=== PATIENT | female | born 1950 ===

== ENCOUNTER 2018-01-02 10:08 | Day surgery (SDC) | payer MEDICARE ==
[2017-10-01 12:43] VITALS: BMI 26.4
[2018-01-02] MEDS ORDERED: Lactated Ringer's 500 ML IV ONE (10:26)
[2018-01-02] MEDS ORDERED: Propofol 10 mg/ml Inj (20 ML) ONE (12:07)
[2018-01-02 12:28] VITALS: TEMP 97
[2018-01-02 12:39] VITALS: BP 113/69; PULSE 51; RESP 13; O2SAT 99
== END 2018-01-02 12:51 | disposition home or self-care (01) ==
LOC: H.ENDO 10:08
PROVIDERS: ATTEND Internal Medicine Gastroenterology
DX: Z12.11 Encounter for screening for malignant neoplasm of colon (principal); J45.909 Unspecified asthma, uncomplicated; E78.5 Hyperlipidemia, unspecified; I10 Essential (primary) hypertension; F41.8 Other specified anxiety disorders; K57.30 Diverticulosis of large intestine without perforation or abscess without bleeding
CPT/HCPCS: G0121; J2001; J2704; J7120

== ENCOUNTER 2018-04-18 06:15 | Day surgery (SDC) | payer MEDICARE, SELFPAY ==
[2018-04-18] MEDS ORDERED: Lactated Ringer's 1,000 ML IV ONE ×2 (08:30→13:10)
[2018-04-18 09:22] VITALS: BMI 24.3
[2018-04-18] MEDS ORDERED: Bupivacaine HCl 0.25% PF (30 ml) Inj ONE (10:09)
[2018-04-18] MEDS ORDERED: EPINEPHrine 1 mg/ml (1:1000) Inj ONE ×2 (10:09)
[2018-04-18] MEDS ORDERED: ceFAZolin IV 1 gm in Dextrose 2 GM/100 ML BAG IVPB ONE (10:10)
[2018-04-18] MEDS ORDERED: Bacitracin Ointment 30 GM TUBE ONE (10:10)
[2018-04-18] MEDS ORDERED: Propofol 10 mg/ml Inj (20 ML) ONE (11:03)
[2018-04-18] MEDS ORDERED: Lidocaine 2% MPF (5 ml) Inj ONE (11:26)
[2018-04-18] MEDS ORDERED: ePHEDrine 50 mg/ml Inj ONE (11:28)
[2018-04-18] MEDS ORDERED: Dexamethasone 4 mg/1 ml ONE (11:28)
[2018-04-18] MEDS ORDERED: Lidocaine 2% MPF (5 ml) Inj INJ ONE (11:40)
[2018-04-18] MEDS ORDERED: methylPREDNISolone Depo 80 mg/ml Inj IM ONE (11:40)
[2018-04-18] MEDS ORDERED: Bupivacaine 0.5% 50 ML IJ ONE (11:40)
[2018-04-18] MEDS ORDERED: EPINEPHrine 1 mg/ml (1:1000) Inj IV ONE (11:40)
[2018-04-18] MEDS ORDERED: methylPREDNISolone Depo 80 mg/ml Inj ONE (11:50)
--- NOTE | 2018-04-18 12:10 | PCM.SURG1 ---
Surgeon's Initial Post Op Note - Surgeon's Notes Surgeon: Leonel Levy MD Inspector Tool: Gallo Mcarthur PA-C Type of Anesthesia: General Endo Pre-Operative Diagnosis: left knee meniscus tear Operative Findings: see op report Post-Operative Diagnosis: same as pre-op dx Operation Performed: Left knee arthroscopy, partial meniscectomy, synovectomy, chondroplasty injection Specimen/Specimens Removed: none Estimated Blood Loss: EBL {In ML}: 3 Date of Surgery/Procedure: 04/18/18 Time of Surgery/Procedure: 11:30
[2018-04-18] MEDS ORDERED: Oxycodone/Acetaminophen 5/325 mg Tab PO PRN (12:14)
[2018-04-18] MEDS ORDERED: HYDROmorphone 0.5 mg/0.5 ml ISec IVP PRN (12:17)
[2018-04-18] MEDS ORDERED: Dexamethasone 4 mg/1 ml IVP PRN (12:17)
[2018-04-18] MEDS ORDERED: DiphenhydrAMINE 50 mg/ml Inj IVP PRN (12:17)
[2018-04-18] MEDS ORDERED: Lactated Ringer's 1,000 ML IV SCH (12:30)
[2018-04-18 13:34] VITALS: TEMP 97.6
[2018-04-18 13:52] VITALS: BP 118/72; PULSE 62; RESP 16; O2SAT 98
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
== END 2018-04-18 14:39 | disposition home or self-care (01) ==
LOC: H.OPSURG 06:15
PROVIDERS: ATTEND Orthopaedic Surgery
DX: M25.462 Effusion, left knee (principal); M23.8X2 Other internal derangements of left knee; M94.262 Chondromalacia, left knee; M23.232 Derangement of other medial meniscus due to old tear or injury, left knee
CPT/HCPCS: 20610; 29876; 29880; 29884; 88305; 97116; 97161; G8978; G8979; G8980; J0171; J0690; J1040; J1100; J2001; J2405; J2704; J3010; J7120